=== PATIENT | female | born 1990 | race African-American/Black ===

== ENCOUNTER 2016-07-26 01:07 | Emergency (ER) | payer MEDICAID ==
[~2016-07-26] VITALS: Ht 170.2 cm; Wt 104.0 kg
[~2016-07-26 01:07] MED LIST: ALBU17I INH; CLIN1CAP5 PO; DICL50TA2 PO
[2016-07-26 01:09] VITALS: BP 119/57; PULSE 90; RESP 18; TEMP 97.8; O2SAT 98
[2016-07-26] MEDS ORDERED: diphenhydrAMINE HCL 25 MG CAP PO ONE (02:15)
--- NOTE | 2016-07-26 02:17 | PD ---
HPI Chief Complaint: Cold / Flu Symptoms Time Seen by Provider: 02:06 Travel History International Travel<30 days: No Contact w/Intl Traveler<30days: No Traveled to known affect area: No History of Present Illness HPI 26-year-old black female with a 30 week IUP presents to emergency department with a one-week history of cold symptoms. LOCATION: Upper respiratory QUALITY: Aching SEVERITY: Moderate to severe TIMING: Constant but intensifying DURATION: One week CONTACTS: Multiple sick people MODIFYING FACTORS: Coughing and swallowing. ASSOCIATED TIME AND SYMPTOMS: Subjective fever and chills, ear pain, sore throat , posttussive emesis, cough, colored sputum, nausea, myalgias, arthralgias and general malaise. Denies shortness of breath or wheezing. No abdominal pain. No leakage of fluid. No vaginal bleeding. Normal movement. No flu shot this year. PFSH Past Medical History Anemia: Yes (WITH BLOOD TRANSFUSION) Asthma: Yes (CHILDHOOD) Autoimmune Disease: Yes (SICKLE TRAIT) Migraines: Yes Tetanus Vaccination: < 5 Years Influenza Vaccination: No ?: LMP: 12/26/15 : 2 Para: 2 Past Surgical History Surgical History: No Previous Surgery Social History Alcohol Use: Yes (OCC) Tobacco Use: No Substance Use: No Allergies-Medications (Allergen,Severity, Reaction): Coded Allergies: Penicillin (Verified Allergy, Severe, RASH, 07/26/16) Reported Meds & Prescriptions Reported Meds & Active Scripts Active No Active Prescriptions or Reported Medications Review of Systems Except as stated in HPI: all other systems reviewed are Neg Physical Exam Narrative GENERAL: Well-developed, well-nourished in no acute distress. Nontoxic appearing. HEAD: Normocephalic, atraumatic. EYES: Pupils equal round and reactive. Extraocular motions intact. No scleral icterus. No injection or drainage. ENT: TMs clear without erythema. The external auditory canals clear. Nose: clear . Posterior pharynx is pink and moist. No tonsillar edema or exudate. Uvula midline. Airway patent. NECK: Trachea midline.Supple, nontender, moves head freely. No central bony tenderness or spasm. CARDIOVASCULAR: Regular rate and rhythm without murmurs, gallops, or rubs. RESPIRATORY: Clear to auscultation. Breath sounds equal bilaterally. No wheezes , rales, or rhonchi. GASTROINTESTINAL: Abdomen soft, non-tender, gravid uterus. Positive movement. No guarding. EXTREMITIES: No clubbing, cyanosis, or edema. No joint tenderness, effusion, or edema noted. BACK: Nontender without deformity or crepitance. No flank tenderness. Data Data Last Documented VS Vital Signs Date Time Temp Pulse Resp B/P Pulse Ox O2 Delivery O2 Flow Rate FiO2 07/26/16 02:01 16 07/26/16 01:09 97.8 90 119/57 98 Orders Group A Rapid Strep Screen (07/26/16 02:04) Influenzae A/B Antigen (07/26/16 02:04) Diphenhydramine (Benadryl) (07/26/16 02:15) Strep Culture (Group A) (07/26/16 02:10) MDM Medical Decision Making Medical Screen Exam Complete: Yes Emergency Medical Condition: Yes Medical Record Reviewed: Yes Interpretation(s) Rapid strep: Negative for group A strep. Influenza: Negative Differential Diagnosis MDM: High Differential diagnoses: Pneumonia, bronchitis, URI, strep throat, influenza, viral syndrome Narrative Course Influenza swab, strep throat swab. Patient counseled on not taking Robitussin. She is aware that she can take 25 g of Benadryl every 4 hours as needed for nausea. Tylenol for fever. No Motrin. Patient rapid strep and influenza are negative. Patient is feeling much improved. She is not vomiting. She's taken by mouth. This is URI, Diagnosis Primary Impression: URI (upper respiratory infection) Qualified Code: J06.9 - Viral upper respiratory tract infection Additional Impression: Qualified Code: Z3A.30 - 30 weeks gestation of Patient Instructions: General Instructions Additional Instructions: Rest. Increase fluids. Tylenol. Benadryl 25 mg every 4 hours as needed for nausea. Followup with your Dr. in 2-3 days. Return to the ER for any problems. Med/Other Pt SpecificInfo: No Meds Exist/No RX given Scripts No Active Prescriptions or Reported Meds Disposition: 01 DISCHARGE HOME Condition: Stable Deshawn Powers Jul 26, 2016 02:17
[2016-07-26 03:06] VITALS: BP 158/88; TEMP 99.3
== END 2016-07-26 03:22 | disposition home or self-care (01) ==
LOC: NEPB 01:07
DX: O98.813 Other maternal infectious and parasitic diseases complicating pregnancy, third trimester (principal); Z3A.30 30 weeks gestation of pregnancy
CPT/HCPCS: 87081; 87804; 87880; 99283